=== PATIENT | female | born 1965 | race Caucasian/White ===

== ENCOUNTER 2021-09-03 10:54 | Emergency (ER) | payer OTHER ==
[~2021-09-03 10:54] MED LIST: Sodium Chloride 0.9% 1,000 ML BAG ONE
[2021-09-03] MEDS ORDERED: Ondansetron PF 4 MG/2 ML Vial ONE ×2 (11:54→12:13)
[2021-09-03] MEDS ORDERED: Sodium Chloride 0.9% 1,000 ML ONE (11:54)
[2021-09-03 12:16] LABS: Hemoglobin 15.6 g/dL (12.0-16.0); Mean Corpuscular HGB CONC 33.1 g/dL (32.0-36.0); Mean Corpuscular Hemoglobin 34.2 pg (27.0-31.0); Mean Corpuscular Volume 103.3 fL (78.0-98.0); Mean Platelet Volume 6.8 fL (7.4-10.4); Platelet Count 234 thou/uL (130-400); RBC Distribution Width 11.9 % (11.5-14.5); Red Blood Cell (RBC) Count 4.57 mill/uL (4.20-5.40); White Blood Cell (WBC) Count 18.7 thou/uL (4.8-10.8)
[2021-09-03 12:28] LABS: Band 7 % (5-11); CRP (Inflammatory) 5.46 mg/dL (= or < 0.5); Lymphocytes 5 % (21-51); MDiff Complete? YES; Neutrophil 84 % (42-75)
[2021-09-03 12:29] LABS: Anisocytosis SLIGHT = 6-15 cells (100X) (0-5/hpf); Monocytes 4 % (0-10); Platelet Morphology Comment Appears Adequate
[2021-09-03 12:30] LABS: ALT (SGPT) 16 U/L (8-55); AST (SGOT) 28 U/L (5-34); Albumin 3.9 g/dL (3.5-5.0); Alkaline Phosphatase 126 U/L (40-110); Anion Gap 18 mmol/L (10-20); BUN (Urea Nitrogen) 6 mg/dL (9.8-20.1); Bilirubin, Total 2.3 mg/dL (0.2-1.2); Calc. Creatinine Clearance 0 mL/min (70-130); Calcium 9.7 mg/dL (7.8-10.44); Carbon Dioxide 23 mmol/L (22-29); Chloride 98 mmol/L (98-107); Globulin 2.3 g/dL (2.4-3.5); Glucose 150 mg/dL (70-105); Potassium 3.5 mmol/L (3.5-5.1); Protein, Total 6.2 g/dL (6.0-8.3); Sodium 135 mmol/L (136-145)
[2021-09-03 12:34] LABS: Bilirubin Negative (Negative); Blood, Urine Moderate (Negative); Glucose, Urine (Dipstick) Negative (Negative); Ketone, Urine Negative (Negative); Leukocyte Negative (Negative); Nitrite Negative (Negative); Protein, Urine (Dipstick) Negative (Neg-Trace); Urobilinogen 0.2 mg/dL (Less than 2)
[2021-09-03 12:37] LABS: Clarity Hazy (Clear); Specific Gravity, Urine 1.022 (1.002-1.036)
[2021-09-03 12:42] LABS: Bacteria/HPF 2+ HPF (None Seen); WBC/HPF 0-3 HPF (0-3)
[2021-09-03 12:51] LABS: CKMB 0.4 ng/mL (0-6.6)
[2021-09-03] MEDS ORDERED: Morphine 4 MG/ML VIAL ONE ×2 (12:52→14:59)
[2021-09-03] MEDS ORDERED: Iopamidol 370 76% 100 ML VIAL ONE (13:08)
== END 2021-09-03 15:05 | disposition short-term general hospital (02) ==
LOC: MADERS 10:54
DX: K85.91 Acute pancreatitis with uninfected necrosis, unspecified (principal); B96.89 Other specified bacterial agents as the cause of diseases classified elsewhere; R79.89 Other specified abnormal findings of blood chemistry; I10 Essential (primary) hypertension; F17.210 Nicotine dependence, cigarettes, uncomplicated; Z79.899 Other long term (current) drug therapy
CPT/HCPCS: 74177; 80053; 81003; 81015; 82150; 82550; 82553; 83605; 83690; 84484; 85025; 86140; 93005; 96374; 96375; 96376; J2270; J2405; J7050; Q9967

== ENCOUNTER 2021-11-17 13:41 | Emergency (ER) | payer OTHER ==
[2021-11-17] MEDS ORDERED: Bacitracin 1 PK ONE (14:17)
[2021-11-17] MEDS ORDERED: Boostrix 0.5 ML (Tdap) VIAL ONE (14:17)
[2021-11-17] MEDS ORDERED: Amoxicillin/Potassium Clav 875 MG TAB ONE (14:17)
== END 2021-11-17 14:50 | disposition home or self-care (01) ==
LOC: MADERS 13:41
DX: S81.831A Puncture wound without foreign body, right lower leg, initial encounter (principal); S81.832A Puncture wound without foreign body, left lower leg, initial encounter; Z23 Encounter for immunization; I10 Essential (primary) hypertension; K21.9 Gastro-esophageal reflux disease without esophagitis; F17.210 Nicotine dependence, cigarettes, uncomplicated; Z79.899 Other long term (current) drug therapy; W54.0XXA Bitten by dog, initial encounter
CPT/HCPCS: 90715

== ENCOUNTER 2023-09-25 10:32 | Emergency (ER) | payer OTHER ==
[~2023-09-25 10:32] MED LIST changes: +Iopamidol 370 76% 100 ML VIAL ONE; -Sodium Chloride 0.9% 1,000 ML BAG ONE
[2023-09-25] MEDS ORDERED: Lidocaine Viscous Sol 2% 15 ml UD Cup ONE (11:11)
[2023-09-25] MEDS ORDERED: Ketorolac Tromethamine 30 MG/ML VIAL ONE (11:11)
[2023-09-25] MEDS ORDERED: Sodium Chloride 0.9% 1,000 ML ONE (11:11)
[2023-09-25] MEDS ORDERED: Mag-Al Plus 1200 MG/1200 MG/120 MG/30 ML UDCUP ONE (11:11)
[2023-09-25] MEDS ORDERED: Dicyclomine 20 MG/2 ML VIAL ONE (11:11)
[2023-09-25] MEDS ORDERED: Ondansetron PF 4 MG/2 ML Vial ONE (11:11)
[2023-09-25 11:22] LABS: #Basophils 0.2 thou/uL (0.0-0.2); #Eosinphils 0.1 thou/uL (0.0-0.7); #Lymphocytes 0.9 thou/uL (1.20-3.40); #Monocytes 0.5 thou/uL (0.11-0.59); #Neutrophils 6.4 thou/uL (1.40-6.50); %Basophils 2.1 % (0.0-1.0); %Eosinophils 1.4 % (0.0-10.0); %Lymphocytes 11.3 % (21.0-51.0); %Monocytes 5.9 % (0.0-10.0); %Neutrophils 79.3 % (42.0-75.0); Hematocrit 46.5 % (36.0-47.0); Hemoglobin 14.8 g/dL (12.0-16.0); Mean Corpuscular HGB CONC 31.9 g/dL (32.0-36.0); Mean Corpuscular Hemoglobin 32.7 pg (27.0-31.0); Mean Corpuscular Volume 102.4 fl (78.0-98.0); Mean Platelet Volume 8.5 fL (7.4-10.4); Platelet Count 297 10x3/uL (130-400); RBC Distribution Width 13.8 % (11.5-14.5); Red Blood Cell (RBC) Count 4.54 mill/uL (4.20-5.40); White Blood Cell (WBC) Count 8.1 10x3/uL (4.8-10.8)
[2023-09-25 11:33] LABS: ALT (SGPT) 13 U/L (8-55); AST (SGOT) 20 U/L (5-34); Albumin 4.4 g/dL (3.5-5.0); Alkaline Phosphatase 115 U/L (40-110); Anion Gap 16 mmol/L (10-20); BUN (Urea Nitrogen) 4 mg/dL (9.8-20.1); Bilirubin, Total 1.2 mg/dL (0.2-1.2); Calc. Creatinine Clearance 0 mL/min (70-130); Carbon Dioxide 27 mmol/L (22-29); Chloride 101 mmol/L (98-107); Estimated GFR 97; Globulin 3.6 g/dL (2.4-3.5); Glucose 131 mg/dL (70-105); Lipase 113 U/L (8-78); Potassium 3.2 mmol/L (3.5-5.1); Sodium 141 mmol/L (136-145); Troponin I Less than 0.010 ng/mL (< 0.028)
[2023-09-25] MEDS ORDERED: HYDROcodone/Acetaminophen 10/325 mg Tablet ONE (12:18)
== END 2023-09-25 12:50 | disposition home or self-care (01) ==
LOC: MADERS 10:32
DX: K85.90 Acute pancreatitis without necrosis or infection, unspecified (principal); E87.6 Hypokalemia; I10 Essential (primary) hypertension; K21.9 Gastro-esophageal reflux disease without esophagitis; F17.210 Nicotine dependence, cigarettes, uncomplicated; Z79.899 Other long term (current) drug therapy
CPT/HCPCS: 74177; 80053; 83605; 83690; 84484; 85025; 93005; 96372; 96374; 96375; J1885; J2405; J7050; Q9967